=== PATIENT | female | born 1945 | race Caucasian/White ===

== ENCOUNTER → 2017-05-30 | Outpatient (CLI) | payer MEDICARE, MEDICAID ==
[~2017-05-30] MED LIST: ACETAMINOPHEN500 M2 PO; ALLOPURINOL300 M1 PO; ARTIFICIAL TEAR15 M4 OP; AUGMENTIN XR 101 TER PO; CLINDAMYCIN300 MG PO; COMPAZINE10 MG PO; DILANTIN 100MG100 MG PO; DOCUSATE SODIU100 MG PO; FENOFIBRATE MI134 MG PO; FERROUS SULFAT325 M2 PO; FISH OIL1000 MG PO; FUROSEMIDE 40MG40 M1 PO; GABAPENTIN300 MG PO; GLIPIZIDE10 MG PO; LISINOPRIL10 MG PO; METFORMIN1000 MG PO; MYCOSTATIN100000 U/G EX; OMEPRAZOLE20 MG PO; PRAVACHOL 40MG40 MG PO; SERTRALINE 100100 MG PO; TRAMADOL 50MG T50 M1 PO; VITAMIN B121000 MC2 PO; VITAMIN D31000 IU PO
[2017-05-30 09:06] LABS: STOOL OCCULT BLOOD NEGATIVE (NEG)
[2017-05-30 17:28] LABS: STOOL OCCULT BLOOD NEGATIVE (NEG)
== END ==
LOC: LAB 08:29
PROVIDERS: Internal Medicine
DX: D64.9 Anemia, unspecified (principal); R71.0 Precipitous drop in hematocrit
CPT/HCPCS: G0328